=== PATIENT | female | born 1955 | race African-American/Black ===

== ENCOUNTER → 2016-10-22 | Outpatient (CLI) | payer OTHER ==
[~2016-10-22] MED LIST: ALLERGY RELIEF10 M1 PO; PREDNISONE50 MG PO; RANITIDINE HCL300 MG PO
--- NOTE | ~2016-10-22 | CR78 ---
[facility] A Service [facility] RADIOLOGY TEXT RESULTS PATIENT: MICHAEL LYNCH LOCATION: [facility] : 59 UNIT #: [id number] AGE: [address]: Adarsh Vazquez MD SEX: F ORDER DR: [id number] [facility] [address] [facility] [address] [place], [place] [address] [id number] O MR#: [id number] Acc #: [id number] NAME: MICHAEL LYNCH : 1955 SEX: F STUDY DATE/TIME: 10/22/2016 13:44 UNIT: [facility] ROOM: STUDY DESCRIPTION: CR Clavicle Comp Rt Attending Physician: Adarsh Vazquez M.D. Ordering Physician: Adarsh Vazquez M.D. Primary Care Physician: Evelio Mcdowell Aprn MEDICAL IMAGING REPORT This report is preliminary unless electronic signature is present EXAM 2 views right clavicle DATE 10/22/2016 HISTORY Physician's order states right clavicle swelling. Patient states moderate sized knot on medial end of right clavicle. Symptoms began May 2016. No documented injury. COMPARISON None FINDINGS No acute right clavicle fracture is seen. No definite sternoclavicular dislocation is identified on this examination. No acromioclavicular or coracoclavicular separation is seen. No osteolytic or osteoblastic lesion is identified. Imaged right lung apex appears clear. IMPRESSION 1. Normal 2 views of the right clavicle. 2. If the patient's palpable abnormality persists, consider correlation with CT imaging. Dictated by... Fanta Alvarez M.D. THIS IS AN ELECTRONICALLY VERIFIED REPORT Fanta Alvarez M.D. at 10/25/2016 12:06 AM [facility]/to TD: 10/23/2016 15:17 [facility] A Service [facility] RADIOLOGY TEXT RESULTS PATIENT: MICHAEL LYNCH LOCATION: [facility] : 59 UNIT #: [id number] AGE: [address]: Adarsh Vazquez MD SEX: F ORDER DR: JOB #: [id number] MEDICAL IMAGING REPORT Page 1 of 1 COPY
== END | disposition home or self-care (01) ==
LOC: CRAD 13:33
DX: R22.1 Localized swelling, mass and lump, neck (principal)
CPT/HCPCS: 73000